=== PATIENT | female | born 1990 | race Caucasian/White ===

== ENCOUNTER → 2019-09-21 | Outpatient (CLI) | payer OTHER ==
[~2019-09-21] MED LIST: MOTRIN 600600 MG/TAB PO; PRENATAL1 TA7 PO
== END ==
LOC: ZCOL.LAB 13:19
DX: Z20.828 Contact with and (suspected) exposure to other viral communicable diseases (principal)

== ENCOUNTER 2019-12-16 07:55 | Inpatient (IN) | payer BC ==
[2019-12-16] VITALS (31 sets, daily range): BP systolic 72–177; BP diastolic 38–83; PULSE 65–111; TEMP 97.6–98.4
[~2019-12-16] VITALS: Ht 165.1 cm; Wt 81.8 kg
--- NOTE | 2019-12-16 08:32 | NUR ---
0750 PATIENT HERE FOR COMPLAINTS OF JOSÉ SINCE 3 AM AND GETTING MORE INTENSE. EFM ON FHT 120, BABY VERY ACTIVE. PATIENT BREATHS THROUGH EACH CONTRACTION. SVE 5/100/-2 BULGY BAG NOTED. ASSESSMENT COMPLETED. IV STARTED IN LEFT WRIST AT THIS TIME AND LR HUNG. ALL CONSENTS SIGNED BY AT THIS TIME. DR WILKINSON AT BEDSIDE, TO TALK WITH PATIENT AND . MACIE GREEN CRNA NOTIFIED OF PATIENT WANTING EPIDURAL WHEN AVAILABLE
--- NOTE | 2019-12-16 08:42 | NUR ---
0830 PATIENT SITS UP ON EDGE OF BED FOR EPIDURAL PLACEMENT. Miguel BRODY RN AT BEDSIDE WITH MACIE GREEN CRNA. SEEE HOUSE SUPERINTENDENT NOTES FOR QUESTIONS. PATIENT TOLERATES WELL.
[2019-12-16 08:45] LABS: BASO % 0.4 % (0.0-2.0); EOS # 0.1 (0.0-0.7); EOS % 0.9 % (0-4.0); GRAN # 8.3 (1.4-6.5); GRAN % 77.1 % (42.2-75.2); HEMOGLOBIN 11.9 g/dl (12.5-16.0); LYMPH # 1.5 (1.2-3.4); LYMPH % 13.7 % (20.0-51.0); MEAN CELL VOLUME 90 fl (80.0-100.0); MEAN CORPUSCULAR HEMOGLOBIN 31 pg (27.0-31.0); MEAN CORPUSCULAR HGB CONC 34 g/dl (33.0-37.0); MEAN PLATELET VOLUME 9.5 fl (7.4-10.4); MONO # 0.7 (0.1-0.6); MONO % 6.8 % (1.7-9.3); PLATELET COUNT 227 K/mm3 (130-400); RED BLOOD COUNT 3.86 M/mm3 (4.10-5.30); REDCELL DISTRIBUTION WIDTH-CV 12.6 % (11.5-14.5)
[2019-12-16 08:50] LABS: HEMATOCRIT 34.7 % (37.0-47.0)
--- NOTE | 2019-12-16 09:04 | NUR ---
[id number]: FHR late deceleration noted down to 70 bpm lasting for 90 seconds, then back to baseline followed by another late deceleration down to 70 bpm lasting for 90 seconds. Patient repositioned to left lateral then back to right lateral. SVE unchanged. Patient feeling nauseated. BP 86/49, pulse 71. Ephedrine given IVP. Repeat BP 95/59, pulse 83. 0915: Patient states she is feeling better and denies nausea. Neal catheter placed using sterile technique. Patient tolerates well and comfortable with epidural. 0916: BP 87/54, pulse 92. Ephedrine given IVP. Repeat BP 118/66, pulse 70.
--- NOTE | 2019-12-16 09:20 | NUR ---
Dr. Varghese in room and reviews FHR and contractions on monitor. Patient comfortable with epidural. Plan of care discussed with patient. 0920: AROM with small amount of clear fluid noted. FHR acceleration noted during AROM/SVE. Pericare provided.
--- NOTE | 2019-12-16 09:46 | NUR ---
0946: Subtle late deceleration noted. Patient repositioned to far left lateral, FHR acceleration noted with materal repositioning.
--- NOTE | 2019-12-16 10:04 | NUR ---
FHR late onset deceleration down to 125bpm from baseline of 145bpm lasting for 70 seconds. Patient repositioned to far right lateral and FHR returns to baseline of 145 bpm.
--- NOTE | 2019-12-16 10:18 | NUR ---
Patient feeling nauseated and feeling more vaginal pressure during contractions. SVE 6/100/-1. Patient given Zofran IVP. Patient repositioned to far right lateral and peanut ball placed between thighs. Patient comfortable at this time. Dr. Varghese at nurses station and reviews FHR back to decelerations. Verbal order to start pitocin when FHR reactive.
--- NOTE | 2019-12-16 10:35 | NUR ---
Pitocin started at 2ml/hr.
--- NOTE | 2019-12-16 11:12 | NUR ---
FHR deceleration down to 80 bpm lasting for 60 seconds. SVE /0, scalp stimulation noted with SVE. Patient repositioned to left lateral and FHR returns to 120 bpm. 1114: FHR deceleration down to 60 bpm. Pitocin off. Patient repositioned to far right lateral. SVE by Mikie Griffin RN . LR bolus infusing. FHR remains down at 60 bpm. Patient repositioned to far left lateral. scalp electrode placed by Mikie Griffin RN and SVE . 1117: Dr. Varghese called to come to hospital now for delivery and that FHR down at 60bpm. FHR back to 120 bpm at 1118. Report to Mikie Griffin who will assume patient care at this time.
--- NOTE | 2019-12-16 12:37 | NUR ---
1130 PUSHES WITH EACH CONTRACTIONS,
--- NOTE | 2019-12-16 12:39 | NUR ---
1130 DR WILKINSON AT BEDSIDE. PATIENT PUSHES WITH EACH CONTRACTIONS. TOLERATES WELL. PITOCIN REMAINS OFF 1200 PATIENT CONTINUES TO PUSH, OCCASSIONAL VARIABLES NOTED BUT RETURN TO [address] WILKINSON REMAINS AT BEDSSIDE. AND PITOCIN REMAINS OFF. 1204 BABY [address]Y DELIVER[address] BY DR WILKINSON. BABY TO MOMS CHEST, SKIN TO SKIN NOTED. 1209 PLACENTA DELIVERED AT THIS TIME. AND PITOCIN STARTED AT 333/HR PER PROTOCOL. FUNDUS FIRM AND BLEEDING WNL. NO REPAIR NEEDED.
[2019-12-17 02:00] VITALS: BP 101/50; PULSE 58; TEMP 98
[2019-12-17 07:10] VITALS: BP 109/75; PULSE 71; TEMP 98.2
[2019-12-17 08:00] LABS: HEMOGLOBIN 11.3 g/dl (12.5-16.0)
[2019-12-17 08:02] LABS: HEMATOCRIT 33.8 % (37.0-47.0)
[2019-12-17] MEDS ORDERED: IBU600 MG PO (09:15)
[2019-12-17] MEDS ORDERED: PERCOCET 325 MG1 TA2 PO (09:15)
[2019-12-17 12:00] VITALS: BP 108/72; PULSE 70; TEMP 98.2
--- NOTE | 2019-12-17 15:20 | NUR ---
Patient given discharge instructions. Denies questions. Escorted off unit at 1530.
== END 2019-12-17 15:30 | disposition home or self-care (01) | DRG 807 ==
LOC: LDRO 07:55 → LDR 07:55 → LDRO 08:27 → OB 16:00
PROVIDERS: ADMIT Obstetrics & Gynecology
PROC: 10E0XZZ Delivery of Products of Conception, External Approach (ICD-10-PCS; principal; 2019-12-06)
DX: O76 Abnormality in fetal heart rate and rhythm complicating labor and delivery (principal); Z37.0 Single live birth; Z3A.40 40 weeks gestation of pregnancy
CPT/HCPCS: J2405; J2590; J7120

== ENCOUNTER 2023-06-15 17:54 | Inpatient (IN) | payer SELFPAY ==
[~2023-06-15] VITALS: Ht 165.1 cm; Wt 85.0 kg
[2023-06-15] VITALS (11 sets, daily range): BP systolic 94–141; BP diastolic 56–84; PULSE 77–106
[~2023-06-15 17:54] MED LIST changes: +IBU600 MG PO; +PERCOCET 325 MG1 TA2 PO
--- NOTE | 2023-06-15 18:13 | NUR ---
PT ARRIVES ON UNIT COMPLAINING OF CONTINUED LEAKING CLEAR FLUID SINCE SHE WAS LAST SEEN THIS AM. PT DENIES VB, CONSISTENT CONTRACTIONS, DFM, OR ANY OTHER COMPLAINTS AT THIS TIME. 1812 JAMES CALVO UPDATED ON PT ARRIVAL, COMPLAINTS. ORDERS TO PERFORM AMNITRACE AND SVE. AMAIRANI PRIESTVO
[2023-06-15] MEDS ORDERED: LR 1,000 ML IV PRN (18:15)
[2023-06-15] MEDS ORDERED: LR & Oxytocin 500 ML IV SCH ×2 (18:45)
[2023-06-15] MEDS ORDERED: LR 1,000 ML IV SCH (18:45)
[2023-06-15 20:04] LABS: BASO # 0.1 K/mm3 (0.0-0.2); BASO % 0.6 % (0.0-2.0); EOS # 0.3 K/mm3 (0.0-0.7); EOS % 3.2 % (0.0-4.0); GRAN # 5.4 K/mm3 (1.4-6.5); GRAN % 61.8 % (42.2-75.2); HEMATOCRIT 38.6 % (37.0-47.0); HEMOGLOBIN 13.7 g/dl (12.5-16.0); LYMPH # 2.2 K/mm3 (1.2-3.4); LYMPH % 25.7 % (20.0-51.0); MEAN CELL VOLUME 93 fl (80.0-100.0); MEAN CORPUSCULAR HEMOGLOBIN 33 pg (27-31); MEAN CORPUSCULAR HGB CONC 36 g/dl (33.0-37.0); MONO # 0.7 K/mm3 (0.1-0.6); MONO % 7.9 % (1.7-9.3); PLATELET COUNT 198 K/mm3 (130-400); RED BLOOD COUNT 4.16 M/mm3 (4.10-5.30); REDCELL DISTRIBUTION WIDTH-CV 12.9 % (11.5-14.5)
--- NOTE | 2023-06-15 20:07 | NUR ---
1953: KAROLINA SANCHEZ AT BED SIDE 1957: TIME OUT COMPLETED: ALL IN AGGREMENT 2001: SINGLE SHOT BY POOL HALL INSPECTOR 2002: EPIDURAL CATH PLACEMENT BY POOL HALL INSPECTOR 2007: LOADING DOSE GIVEN BY POOL HALL INSPECTOR 2010: EPIDURAL PUMP STARTED BY POOL HALL INSPECTOR
[2023-06-15] MEDS ORDERED: Ondansetron 4 MG/2 ML VIAL IV PRN (20:15)
[2023-06-15] MEDS ORDERED: diphenhydrAMINE 25 MG CAP PO PRN (20:15)
[2023-06-15] MEDS ORDERED: Naloxone 0.4 MG/ML VIAL IV PRN ×2 (20:15→23:45)
[2023-06-15] MEDS ORDERED: diphenhydrAMINE 50 MG/ML 1 ML VIAL IV PRN (20:15)
[2023-06-15] MEDS ORDERED: ePHEDrine 50 MG/10 ML VIAL IV PRN (20:15)
[2023-06-15] MEDS ORDERED: ROPivacaine PF 0.2% 200 ML IV ONE (20:16)
[2023-06-15] MEDS ORDERED: traZODone 50 MG TAB PO PRN (21:00)
--- NOTE | 2023-06-15 22:28 | NUR ---
2152: PT STATES FEELING PRESSURE. SVE BY RN COMPLETE/+2. PRACTICE PUSH WITH PT. PT MOVED WELL. 2209: RN ASSISTED PT INTO LITHOTOMY POSITION WITH USE OF BED STIRUPS. 6: PT BEGAN PUSHING WITH RN 2220: DR. RAMIREZ, CHILD ATTENDANT, AND NURSERY RN CALLED TO BS FOR DELIVERY 2225: OF VIABLE MALE INFANT. DELAYED CORD CLAMPING. AFTER >1MIN OF DELAY CORD WAS DOUBLE CLAMPED BY DR. RAMIREZ AND CUT BY FOB. INFANT WAS FURTHER DRIED BY NURSERY RN AND PLACED [id number] WITH MOB. 2228: SPONTANEOUS DELIVERY OF INTACT PLACENTA. PERINEUM INTACT PER DR. RAMIREZ 2230: START OF PP RECOVERY.
[2023-06-15] MEDS ORDERED: Magnes Hydrox (MOM) 80 MG/ML 30 ML CUP PO PRN (22:45)
[2023-06-15] MEDS ORDERED: Loratadine 10 MG TAB PO PRN (22:45)
[2023-06-15] MEDS ORDERED: Phenylephrine/Mineral Oil/Petrolatum 57 GM TUBE RC PRN (23:45)
[2023-06-15] MEDS ORDERED: Measles/Mumps/Rubella Virus Vaccine Live w Diluent 0.5 ML VIAL SQ SCH (23:45)
[2023-06-15] MEDS ORDERED: Witch Hazel 50% Pads Bulk TUB TP PRN (23:45)
[2023-06-15] MEDS ORDERED: Mag/Al Hydrox/Simeth Susp 30 ML CUP PO PRN (23:45)
[2023-06-15] MEDS ORDERED: oxyCODONE 5 MG TAB PO PRN (23:45)
[2023-06-16] VITALS: BP 109/64; PULSE 71
[2023-06-16] MEDS ORDERED: Ibuprofen 600 MG TAB PO SCH
[2023-06-16] MEDS ORDERED: Acetaminophen 500 MG TAB PO SCH
[2023-06-16 00:30] VITALS: BP 108/69; PULSE 85
[2023-06-16 01:30] VITALS: BP 105/66; PULSE 78
--- NOTE | 2023-06-16 01:30 | NUR ---
Pt unable to lift and hold each leg off of bed for 5 seconds. Maddi Steady used for transfer. Pt able to position self to sitting on side of bed. Epidural catheter removed, pt tolerated well. Tip smooth, blue, and intact. Pt transferred to bathroom using Maddi Steady. Unable to void at this time. Pericare explained and provided. Clean gown on. Mesh panties and peripad applied. Pt able to pivot to wheelchair. Transferred to room 207 in stable condition with belongings.
[2023-06-16 05:17] VITALS: BP 102/79; PULSE 69; TEMP 98.1
[2023-06-16] MEDS ORDERED: Sennosides/Docusate 8.6-50 MG TAB PO SCH (08:00)
[2023-06-16 08:06] VITALS: BP 119/83; PULSE 66
--- NOTE | 2023-06-16 10:21 | NUR ---
Initial visit; Parents thanked Body Maker Machine Setter for offering congratulations and God's blessings for the of their daughter. Baby is awaiting her name to be given her from her older sisters who have two names from which to choose. Body Maker Machine Setter thanked family for choosing [place].
[2023-06-16 21:00] VITALS: BP 116/83; PULSE 72; TEMP 97.9
[2023-06-17 09:11] VITALS: BP 115/79; PULSE 72; TEMP 97.9
--- NOTE | 2023-06-17 11:00 | NUR ---
DISCUSSED DC INSTRUCTIONS. PT AGREES.
== END 2023-06-17 11:30 | disposition home or self-care (01) | DRG 807 ==
LOC: LDRO 17:54 → LDR 18:30 → OB 18:30 → LDR 18:31 → OB 06-16 02:00
PROVIDERS: Obstetrics & Gynecology; ADMIT Obstetrics & Gynecology
PROC: 10E0XZZ Delivery of Products of Conception, External Approach (ICD-10-PCS; principal; 2023-06-15)
DX: O48.0 Post-term pregnancy (principal); Z37.0 Single live birth; Z3A.40 40 weeks gestation of pregnancy
CPT/HCPCS: J2795; J7120